=== PATIENT | female | born 1985 | race Caucasian/White ===

== ENCOUNTER 2016-10-04 12:03 | Emergency (ER) | payer OTHER ==
[~2016-10-04] VITALS: Ht 154.9 cm; Wt 68.7 kg
[2016-10-04 13:57] VITALS: BP 130/85
== END 2016-10-04 13:58 | disposition home or self-care (01) ==
LOC: ED 12:03
DX: R19.7 Diarrhea, unspecified (principal); R03.0 Elevated blood-pressure reading, without diagnosis of hypertension; R10.9 Unspecified abdominal pain; M79.1 Myalgia; R53.1 Weakness

== ENCOUNTER 2016-10-06 08:09 | Emergency (ER) | payer OTHER ==
[~2016-10-06] VITALS: Ht 154.9 cm; Wt 68.1 kg
[2016-10-06 08:41] LABS: BASOPHIL % 0.3 % (0-2); PLATELET COUNT 249 x10^3mcL (130-400); RED CELL DISTRIBUTION WIDTH 12.8 % (11.5-14.5)
[2016-10-06 09:07] LABS: CALCIUM 8.7 mg/dL (8.5-10.1); CARBON DIOXIDE 28.7 mmol/L (21-32); CHLORIDE SERUM 102 mmol/L (98-107); CREATININE SERUM 0.8 mg/dL (0.6-1.0); GFR1 > 60 mL/min; GLUCOSE SERUM 131 mg/dL (74-106); POTASSIUM SERUM 3.3 mmol/L (3.5-5.1); SODIUM SERUM 139 mmol/L (136-145)
[2016-10-06 09:11] LABS: ALBUMIN 3.1 g/dL (3.4-5.0); ALKALINE PHOSPHATASE 83 U/L (46-116); ALT/SGPT 23 U/L (14-59); AMYLASE 78 U/L (25-115); AST/SGOT 18 U/L (15-37); BILIRUBIN TOTAL 0.3 mg/dL (0.20-1.00); LIPASE 161 IU/L (73-393); TOTAL PROTEIN, SERUM 7.1 g/dL (6.4-8.2)
[2016-10-06 10:12] VITALS: BP 117/59
== END 2016-10-06 10:37 | disposition home or self-care (01) ==
LOC: ED 08:09
PROVIDERS: Specialist
DX: R19.7 Diarrhea, unspecified (principal); R51 Headache; R10.30 Lower abdominal pain, unspecified
CPT/HCPCS: 83880; J1885; J3010; J7030

== ENCOUNTER 2016-10-24 02:43 | Emergency (ER) | payer OTHER ==
[~2016-10-24] VITALS: Ht 154.9 cm; Wt 68.0 kg
[2016-10-24 05:30] VITALS: BP 110/65
== END 2016-10-24 05:30 | disposition home or self-care (01) ==
LOC: ED 02:43
DX: S00.81XA Abrasion of other part of head, initial encounter (principal); S40.211A Abrasion of right shoulder, initial encounter; F10.129 Alcohol abuse with intoxication, unspecified; W01.0XXA Fall on same level from slipping, tripping and stumbling without subsequent striking against object, initial encounter; Y93.89 Activity, other specified; Y99.8 Other external cause status; Y92.89 Other specified places as the place of occurrence of the external cause
CPT/HCPCS: Q0092

== ENCOUNTER 2017-04-14 16:25 | Emergency (ER) | payer OTHER ==
[~2017-04-14] VITALS: Ht 154.9 cm; Wt 68.5 kg
[2017-04-14 16:47] VITALS: Ht 154.9 cm; Wt 68.5 kg
[2017-04-14 17:47] VITALS: BP 135/68
== END 2017-04-14 17:47 | disposition home or self-care (01) ==
LOC: ED 16:25
DX: S00.201A Unspecified superficial injury of right eyelid and periocular area, initial encounter (principal); M79.672 Pain in left foot; W50.0XXA Accidental hit or strike by another person, initial encounter; Y93.89 Activity, other specified; Y92.89 Other specified places as the place of occurrence of the external cause; Y99.8 Other external cause status

== ENCOUNTER 2017-04-27 14:45 | Emergency (ER) | payer OTHER ==
[~2017-04-27] VITALS: Ht 154.9 cm; Wt 68.0 kg
[2017-04-27 14:55] VITALS: Ht 154.9 cm; Wt 68.0 kg
[2017-04-27 18:05] VITALS: BP 130/81
== END 2017-04-27 18:58 | disposition home or self-care (01) ==
LOC: ED 14:45
DX: R51 Headache (principal)
CPT/HCPCS: J3030

== ENCOUNTER 2017-09-06 13:20 | Emergency (ER) | payer OTHER ==
[~2017-09-06] VITALS: Ht 154.9 cm; Wt 68.5 kg
[2017-09-06 13:22] VITALS: Ht 154.9 cm; Wt 68.5 kg
[2017-09-06 15:04] VITALS: BP 128/74
== END 2017-09-06 15:04 | disposition home or self-care (01) ==
LOC: ED 13:20
DX: S67.21XA Crushing injury of right hand, initial encounter (principal); W23.0XXA Caught, crushed, jammed, or pinched between moving objects, initial encounter; Y93.89 Activity, other specified; Y92.89 Other specified places as the place of occurrence of the external cause; Y99.8 Other external cause status

== ENCOUNTER 2017-10-06 12:10 | Emergency (ER) | payer OTHER ==
[~2017-10-06] VITALS: Ht 154.9 cm; Wt 68.9 kg
[2017-10-06 12:21] VITALS: Ht 154.9 cm; Wt 68.9 kg
[2017-10-06 13:30] VITALS: BP 130/79
== END 2017-10-06 13:30 | disposition home or self-care (01) ==
LOC: ED 12:10
DX: G43.909 Migraine, unspecified, not intractable, without status migrainosus (principal); R19.7 Diarrhea, unspecified; R03.0 Elevated blood-pressure reading, without diagnosis of hypertension
CPT/HCPCS: J1885; J2765

== ENCOUNTER 2017-11-05 06:58 | Emergency (ER) | payer OTHER ==
[~2017-11-05] VITALS: Ht 154.9 cm; Wt 69.0 kg
[2017-11-05 07:03] VITALS: Ht 154.9 cm; Wt 69.0 kg
[2017-11-05 08:31] VITALS: BP 116/79
== END 2017-11-05 08:31 | disposition home or self-care (01) ==
LOC: ED 06:58
DX: L50.0 Allergic urticaria (principal); G43.909 Migraine, unspecified, not intractable, without status migrainosus

== ENCOUNTER 2018-03-21 18:06 | Emergency (ER) | payer OTHER ==
[~2018-03-21] VITALS: Ht 154.9 cm; Wt 69.4 kg
[2018-03-21 18:08] VITALS: Ht 154.9 cm; Wt 69.4 kg
[2018-03-21 19:57] LABS: microscopic required? NO
[2018-03-21 20:07] LABS: BASOPHIL % 0.2 % (0-2); PLATELET COUNT 305 x10^3mcL (130-400); RED CELL DISTRIBUTION WIDTH 13.1 % (11.5-14.5)
[2018-03-21 20:09] LABS: UA SPECIFIC GRAVITY <=1.005 (1.005-1.035); urine erythrocyte NEGATIVE (NEGATIVE)
[2018-03-21 20:22] LABS: CALCIUM 8.7 mg/dL (8.5-10.1); CARBON DIOXIDE 26.8 mmol/L (21-32); CHLORIDE SERUM 104 mmol/L (98-107); CREATININE SERUM 0.8 mg/dL (0.6-1.0); GFR1 > 60 mL/min; GLUCOSE SERUM 102 mg/dL (74-106); POTASSIUM SERUM 3.6 mmol/L (3.5-5.1); SODIUM SERUM 139 mmol/L (136-145)
[2018-03-21 20:25] LABS: ALBUMIN 3.9 g/dL (3.4-5.0); ALKALINE PHOSPHATASE 83 U/L (46-116); ALT/SGPT 28 U/L (14-59); AST/SGOT 27 U/L (15-37); BILIRUBIN TOTAL 0.36 mg/dL (0.20-1.00); LIPASE 210 IU/L (73-393); TOTAL PROTEIN, SERUM 8.1 g/dL (6.4-8.2)
[2018-03-21 21:42] VITALS: BP 137/86
== END 2018-03-21 21:42 | disposition home or self-care (01) ==
LOC: ED 18:06
PROVIDERS: Emergency Medicine
DX: K29.00 Acute gastritis without bleeding (principal); G43.909 Migraine, unspecified, not intractable, without status migrainosus; Z98.890 Other specified postprocedural states
CPT/HCPCS: 36415; Q0162

== ENCOUNTER 2018-05-04 11:33 | Emergency (ER) | payer OTHER ==
[~2018-05-04] VITALS: Ht 154.9 cm; Wt 68.5 kg
[2018-05-04 11:47] VITALS: BP 135/88; Ht 154.9 cm; Wt 68.5 kg
== END 2018-05-04 13:59 | disposition home or self-care (01) ==
LOC: ED 11:33
DX: S33.5XXA Sprain of ligaments of lumbar spine, initial encounter (principal); S63.501A Unspecified sprain of right wrist, initial encounter; G43.909 Migraine, unspecified, not intractable, without status migrainosus; X50.0XXA Overexertion from strenuous movement or load, initial encounter; Y93.89 Activity, other specified; Y92.89 Other specified places as the place of occurrence of the external cause; Y99.0 Civilian activity done for income or pay

== ENCOUNTER 2018-05-06 16:00 | Emergency (ER) | payer OTHER ==
[~2018-05-06] VITALS: Ht 154.9 cm; Wt 69.9 kg
[2018-05-06 16:09] VITALS: BP 153/103; Ht 154.9 cm; Wt 69.9 kg
== END 2018-05-06 17:45 | disposition home or self-care (01) ==
LOC: ED 16:00
DX: G56.01 Carpal tunnel syndrome, right upper limb (principal); G43.909 Migraine, unspecified, not intractable, without status migrainosus

== ENCOUNTER 2018-05-11 12:45 | Emergency (ER) | payer OTHER | END 2018-05-11 14:24 | disposition home or self-care (01) | LOC: ED 12:45 ==

== ENCOUNTER 2019-02-16 18:44 | Emergency (ER) | payer OTHER ==
[~2019-02-16] VITALS: Ht 154.9 cm; Wt 72.6 kg
[2019-02-16 18:52] VITALS: Ht 154.9 cm; Wt 72.6 kg
[2019-02-16 19:43] LABS: PLATELET COUNT 289 x10^3mcL (130-400); RED CELL DISTRIBUTION WIDTH 13.5 % (11.5-14.5)
[2019-02-16 19:56] LABS: CALCIUM 8.6 mg/dL (8.5-10.1); CARBON DIOXIDE 24.4 mmol/L (21-32); CHLORIDE SERUM 107 mmol/L (98-107); CREATININE SERUM 0.7 mg/dL (0.6-1.0); GFR1 > 60 mL/min; GLUCOSE SERUM 96 mg/dL (74-106); POTASSIUM SERUM 3.7 mmol/L (3.5-5.1); SODIUM SERUM 141 mmol/L (136-145)
[2019-02-16 20:00] LABS: ALBUMIN 3.3 g/dL (3.4-5.0); ALKALINE PHOSPHATASE 74 U/L (46-116); ALT/SGPT 19 U/L (14-59); AST/SGOT 15 U/L (15-37); BILIRUBIN TOTAL 0.41 mg/dL (0.20-1.00); TOTAL PROTEIN, SERUM 7.1 g/dL (6.4-8.2)
[2019-02-16 20:07] LABS: microscopic required? YES; urine erythrocyte TRACE (NEGATIVE)
[2019-02-16 20:12] LABS: BAND NEUTROPHIL 0 % (0-10); BASOPHIL 0 % (0-2); MONOCYTE 7 % (0-7); SEGMENTED NEUTROPHILS 60 % (37-75)
[2019-02-16 20:13] LABS: PLATELET MORPHOLOGY PLATELETS NORMAL; rbc morphology (normal/abnorm) NORMAL (NORMAL)
[2019-02-16 20:49] VITALS: BP 138/78
== END 2019-02-16 20:49 | disposition home or self-care (01) ==
LOC: ED 18:44
PROVIDERS: Emergency Medicine
DX: M79.10 Myalgia, unspecified site (principal); G43.909 Migraine, unspecified, not intractable, without status migrainosus
CPT/HCPCS: 36415; 87804; J1885; J7512; Q0162

== ENCOUNTER 2019-06-01 10:28 | Emergency (ER) | payer OTHER ==
[~2019-06-01] VITALS: Ht 154.9 cm; Wt 68.0 kg
[2019-06-01 10:42] VITALS: Ht 154.9 cm; Wt 68.0 kg
[2019-06-01 13:33] VITALS: BP 128/66
== END 2019-06-01 13:33 | disposition home or self-care (01) ==
LOC: ED 10:28
DX: S42.002A Fracture of unspecified part of left clavicle, initial encounter for closed fracture (principal); S20.212A Contusion of left front wall of thorax, initial encounter; G43.909 Migraine, unspecified, not intractable, without status migrainosus; V49.9XXA Car occupant (driver) (passenger) injured in unspecified traffic accident, initial encounter; Y93.I9 Activity, other involving external motion; Y92.413 State road as the place of occurrence of the external cause; Y99.8 Other external cause status
CPT/HCPCS: J1885

== ENCOUNTER 2019-09-13 15:41 | Emergency (ER) | payer OTHER ==
[~2019-09-13] VITALS: Ht 154.9 cm; Wt 71.7 kg
[2019-09-13 15:54] VITALS: BP 138/58; Ht 154.9 cm; Wt 71.7 kg
== END 2019-09-13 16:18 | disposition home or self-care (01) ==
LOC: ED 15:41
DX: K02.9 Dental caries, unspecified (principal); G43.909 Migraine, unspecified, not intractable, without status migrainosus

== ENCOUNTER 2019-09-26 06:39 | Emergency (ER) | payer OTHER, SELFPAY ==
[~2019-09-26] VITALS: Ht 154.9 cm; Wt 70.1 kg
[2019-09-26 06:45] VITALS: Ht 154.9 cm; Wt 70.1 kg
[2019-09-26 07:59] LABS: BASOPHIL % 0.3 % (0-2); PLATELET COUNT 204 x10^3mcL (130-400)
[2019-09-26 08:02] LABS: microscopic required? YES; urine erythrocyte TRACE (NEGATIVE)
[2019-09-26 08:19] LABS: ALKALINE PHOSPHATASE 99 U/L (46-116); ALT/SGPT 34 U/L (14-59); AST/SGOT 26 U/L (15-37); BILIRUBIN TOTAL 0.4 mg/dL (0.20-1.00); CALCIUM 8.2 mg/dL (8.5-10.1); CARBON DIOXIDE 25.6 mmol/L (21-32); CHLORIDE SERUM 103 mmol/L (98-107); CREATININE SERUM 0.9 mg/dL (0.6-1.0); GFR1 > 60 mL/min; GLUCOSE SERUM 131 mg/dL (74-106); LIPASE 99 IU/L (73-393); POTASSIUM SERUM 3.8 mmol/L (3.5-5.1); SODIUM SERUM 138 mmol/L (136-145)
[2019-09-26 08:20] LABS: ALBUMIN 3.2 g/dL (3.4-5.0)
[2019-09-26 09:26] VITALS: BP 129/87
== END 2019-09-26 09:26 | disposition home or self-care (01) ==
LOC: ED 06:39
PROVIDERS: Emergency Medicine
DX: R10.816 Epigastric abdominal tenderness (principal); R10.812 Left upper quadrant abdominal tenderness; R11.2 Nausea with vomiting, unspecified; R19.7 Diarrhea, unspecified; G43.909 Migraine, unspecified, not intractable, without status migrainosus; Z20.828 Contact with and (suspected) exposure to other viral communicable diseases
CPT/HCPCS: J1885; J2405; J3490; J7030; Q0092; U0003-CS

== ENCOUNTER 2020-07-09 18:54 | Emergency (ER) | payer OTHER ==
[~2020-07-09] VITALS: Ht 154.9 cm; Wt 72.1 kg
[2020-07-09 19:29] VITALS: Ht 154.9 cm; Wt 72.1 kg
[2020-07-09] MEDS ORDERED: IBU600 M2 PO (21:57)
[2020-07-09] MEDS ORDERED: METRONIDAZOLE500 M1 PO (21:57)
[2020-07-09] MEDS ORDERED: ULTRAM50 MG PO (21:57)
[2020-07-09 22:39] VITALS: BP 130/76
== END 2020-07-09 22:39 | disposition home or self-care (01) ==
LOC: ED 18:54
DX: N76.0 Acute vaginitis (principal); G43.909 Migraine, unspecified, not intractable, without status migrainosus
CPT/HCPCS: 87491; 87591; J1885